=== PATIENT | female | born 1950 | race Caucasian/White ===

== ENCOUNTER 2020-04-27 22:03 | Inpatient (IN) | payer MEDICARE ==
[2020-04-27] MEDS ORDERED: Lorazepam 1 MG TAB PO PRN (22:32)
[2020-04-28 05:39] LABS: #Basophils 0.1 thou/uL (0.0-0.2); #Eosinphils 0.4 thou/uL (0.0-0.7); #Monocytes 0.7 thou/uL (0.11-0.59); #Neutrophils 3.2 thou/uL (1.40-6.50); %Basophils 1.6 % (0.0-1.0); %Lymphocytes 31.4 % (21.0-51.0); %Monocytes 11.1 % (0.0-10.0); %Neutrophils 49.9 % (42.0-75.0); Hemoglobin 11.5 g/dL (12.0-16.0); Mean Corpuscular Hemoglobin 28.4 pg (27.0-31.0); Mean Corpuscular Volume 86.1 fL (78.0-98.0); Platelet Count 181 thou/uL (130-400); Red Blood Cell (RBC) Count 4.05 mill/uL (4.20-5.40); White Blood Cell (WBC) Count 6.4 thou/uL (4.8-10.8)
[2020-04-28 05:44] LABS: ALT (SGPT) 11 U/L (8-55); AST (SGOT) 24 U/L (5-34); Albumin 3.3 g/dL (3.4-4.8); Alkaline Phosphatase 68 U/L (40-110); Anion Gap 12 mmol/L (10-20); BUN (Urea Nitrogen) 11 mg/dL (9.8-20.1); Bilirubin, Total 0.8 mg/dL (0.2-1.2); Calc. Creatinine Clearance 98 mL/min (70-130); Calcium 8.5 mg/dL (7.8-10.44); Carbon Dioxide 27 mmol/L (23-31); Chloride 104 mmol/L (98-107); Globulin 2.7 g/dL (2.4-3.5); Glucose 99 mg/dL (80-115); Potassium 3.3 mmol/L (3.5-5.1); Sodium 140 mmol/L (136-145)
[2020-04-28] MEDS ORDERED: Losartan Potassium 50 MG TAB PO SCH (09:00)
[2020-04-28] MEDS: Escitalopram Oxalate 20 mg Tablet PO SCH (09:43)
[2020-04-28] MEDS: BIOTIN 5 MG CAPSULE PO SCH (09:44)
[2020-04-28] MEDS: Hydrochlorothiazide 25 MG TAB PO SCH (09:44)
[2020-04-28] MEDS: Loratadine 10 MG TAB PO SCH (09:44)
[2020-04-28] MEDS: Stress 600 With Zinc 1 TAB PO SCH (09:44)
[2020-04-28] MEDS ORDERED: Lorazepam 0.5 MG TAB PO PRN (12:30)
[2020-04-28] MEDS ORDERED: Potassium Chloride 20 MEQ TAB PO SCH (17:45)
[2020-04-28] MEDS: Acetaminophen 500 MG TAB PO PRN (18:33)
[2020-04-28] MEDS: Atorvastatin Calcium 10 MG TAB PO SCH (20:18)
[2020-04-28] MEDS: Melatonin 3 MG TAB PO SCH (20:18)
[2020-04-28] MEDS: Famotidine 20 MG TAB PO SCH (20:18)
--- NOTE | 2020-04-28 21:17 | HP ---
PRINCIPAL DIAGNOSIS: Right femur fracture, status post surgical fixation for therapy. HISTORY OF PRESENT ILLNESS: This is a pleasant 69-year-old female, who apparently fell at home. She noticed immediate pain to her right hip. Workup showed an intertrochanteric fracture and she underwent surgical fixation. She apparently has been gradually declining over the last year and she has been evaluated by Dr. Guo, the neurologist, with no definitive diagnosis. She had a second opinion by another neurologist while in the hospital and they were also not able to give her a diagnosis. She is supposed to follow up as outpatient. She has done well otherwise and was felt to be a candidate for inpatient rehabilitation and transferred here. The patient is resting in bed and other than heartburn, denies any complaints. PAST MEDICAL HISTORY: 1. Hypertension. 2. Mild dysphagia. 3. Mild cognitive dysfunction and gastroesophageal reflux disease. PAST SURGICAL HISTORY: 1. Hysterectomy. 2. Breast lumpectomy. 3. History of back surgery. PSYCHOSOCIAL HISTORY: She lives at home with her . Moves around with a cane. Social alcohol intake. Denies any tobacco or recreational drug abuse. MEDICATIONS: She was transferred here on 1. Tylenol 1000 mg daily as needed. 2. Lipitor 10 mg at bedtime. 3. Lexapro 20 mg daily. 4. Pepcid 20 mg b.i.d. 5. HCTZ 25 daily. 6. Claritin 10 mg daily. 7. Ativan 1 mg daily for anxiety. 8. Cozaar 100 mg daily. 9. Toprol-XL 150 mg at bedtime. 10. Stress tablet with zinc one tablet daily. ALLERGIES: NO KNOWN DRUG ALLERGIES. FAMILY HISTORY: Noncontributory to current admission. REVIEW OF SYSTEMS: CARDIOVASCULAR SYSTEM: Denies any chest pain, shortness of breath, palpitations, PND, orthopnea, pedal edema. RESPIRATORY SYSTEM: Denies any chronic cough, expectoration, or pleuritic-type chest pain. GASTROINTESTINAL SYSTEM: Denies any nausea, vomiting, diarrhea, constipation, hematemesis, melena, hematochezia. GENITOURINARY SYSTEM: Denies any frequency, urgency, dysuria, hematuria. EXTREMITIES: Does complain of right hip and leg pain. CENTRAL NERVOUS SYSTEM: No focal numbness, weakness, or fainting spells. HEENT: Denies any changes with speech, vision, hearing, or swallowing. SKIN: Denies any rash. PHYSICAL EXAMINATION: GENERAL: Pleasant 69-year-old female, who is up in bed and denies any concerns other than heartburn. She is alert, awake, and oriented x3. VITAL SIGNS: She is afebrile. Heart rate 93, respirations 18, oxygen saturation 94% on room air, blood pressure 167/77. HEENT: Normocephalic, atraumatic. Pupils equally reactive to light and accommodation. Extraocular muscles intact. No JVD, thyromegaly, cervical adenopathy, or throat exudates. No carotid bruits. CARDIOVASCULAR SYSTEM: S1-S2 plus. Rate and rhythm regular. RESPIRATORY SYSTEM: Normal vesicular breath sounds heard in all lung blanco. ABDOMEN: Soft, nontender. Bowel sounds heard in all quadrants. EXTREMITIES: Without cyanosis, clubbing. Right hip incision with dressing. CENTRAL NERVOUS SYSTEM: AAO x3. Cranial nerves 2 through 12 intact. Generalized weakness, otherwise nonfocal. LABORATORY DATA: Laboratory values done this morning, shows a white count of 6.4, H and H are 11.5 and 34.5. Sodium 140, potassium is slightly low at 3.3, BUN and creatinine are 11 and 0.68. IMPRESSION: 1. Right hip fracture, status post surgical fixation. 2. Hypertension. 3. Dyslipidemia. 4. Depression and anxiety. 5. Hypokalemia. 6. Gradual decline neurologically with undetermined diagnosis. 7. Gastroesophageal reflux disease. PLAN: 1. Continue current discharge medications from previous hospital. 2. Add Pepcid 20 mg b.i.d. 3. Apparently, her blood pressures have been low in the morning, so we will cut down on losartan 50 mg in the morning and then metoprolol to 50 mg at bedtime, although here her blood pressures have been running high. 4. Heart-healthy diet. 5. Orthopedic precautions. 6. DVT prophylaxis with PlexiPulses. 7. Decubitus precaution. 8. Stress ulcer prophylaxis. 9. Replace potassium. 10. Recheck BMP. 11. PT, OT eval and treat. 12. Discussed with the patient and nursing in detail. All questions answered. Job ID: [id number]
[2020-04-29 05:32] LABS: Anion Gap 14 mmol/L (10-20); BUN (Urea Nitrogen) 11 mg/dL (9.8-20.1); Calc. Creatinine Clearance 97 mL/min (70-130); Calcium 8.6 mg/dL (7.8-10.44); Carbon Dioxide 24 mmol/L (23-31); Chloride 102 mmol/L (98-107); Glucose 103 mg/dL (80-115); Potassium 3.4 mmol/L (3.5-5.1); Sodium 137 mmol/L (136-145)
[2020-04-29] MEDS: Acetaminophen 500 MG TAB PO PRN ×2 (08:36→14:18)
[2020-04-29] MEDS: Hydrochlorothiazide 25 MG TAB PO SCH (08:37)
[2020-04-29] MEDS: Famotidine 20 MG TAB PO SCH ×2 (08:37→20:16)
[2020-04-29] MEDS: Losartan Potassium 50 MG TAB PO SCH (08:37)
[2020-04-29] MEDS: Loratadine 10 MG TAB PO SCH (08:37)
[2020-04-29] MEDS: Escitalopram Oxalate 20 mg Tablet PO SCH (08:37)
[2020-04-29] MEDS: Stress 600 With Zinc 1 TAB PO SCH (08:37)
[2020-04-29] MEDS: BIOTIN 5 MG CAPSULE PO SCH (08:38)
--- NOTE | 2020-04-29 09:06 | PRG ---
DATE OF SERVICE: 04/29/2020 SUBJECTIVE: Ms. Stover is up in bed and states that the famotidine is helping. She is still having some pain, but the pain medicines are helping. No family at bedside. Discussed with nursing. No other concerns or questions. OBJECTIVE: VITAL SIGNS: She is afebrile, heart rate 90, respirations 20, oxygen saturation 93% on room air, and blood pressure is 130/75. CARDIOVASCULAR SYSTEM: S1 and S2 plus. RESPIRATORY SYSTEM: Normal vesicular breath sounds. ABDOMEN: Soft, nontender. Bowel sounds heard in all quadrants. EXTREMITIES: Without cyanosis or clubbing. Hip incision is healthy. CENTRAL NERVOUS SYSTEM: Generalized weakness, otherwise nonfocal. IMPRESSION: 1. Hypertension. 2. Dysphagia. 3. Dyslipidemia. 4. Gastroesophageal reflux disease. 5. Anxiety and depression. 6. Right femur fracture, status post surgical fixation and possible degenerative neuromuscular condition still undetermined. PLAN: 1. Continue current medications. 2. Heart-healthy diet. 3. Orthopedic precautions. 4. Pain management. 5. DVT prophylaxis with PlexiPulses. 6. Decubitus precaution. 7. Stress ulcer prophylaxis. 8. Physical therapy. 9. Routine laboratory values. 10. Monitor neuro status. 11. Discussed with the patient in detail. All questions answered. Job ID: [id number]
[2020-04-29] MEDS: Melatonin 3 MG TAB PO SCH (20:16)
[2020-04-29] MEDS: Atorvastatin Calcium 10 MG TAB PO SCH (20:16)
[2020-04-30] MEDS: Acetaminophen 500 MG TAB PO PRN ×2 (02:44→20:41)
[2020-04-30] MEDS: Hydrochlorothiazide 25 MG TAB PO SCH (08:58)
[2020-04-30] MEDS: Stress 600 With Zinc 1 TAB PO SCH (08:58)
[2020-04-30] MEDS: Famotidine 20 MG TAB PO SCH ×2 (08:59→20:41)
[2020-04-30] MEDS: Losartan Potassium 50 MG TAB PO SCH (08:59)
[2020-04-30] MEDS: Loratadine 10 MG TAB PO SCH (08:59)
[2020-04-30] MEDS: BIOTIN 5 MG CAPSULE PO SCH (08:59)
[2020-04-30] MEDS: Escitalopram Oxalate 20 mg Tablet PO SCH (08:59)
[2020-04-30] MEDS: Melatonin 3 MG TAB PO SCH (20:41)
[2020-04-30] MEDS: Atorvastatin Calcium 10 MG TAB PO SCH (20:41)
[2020-04-30 22:32] VITALS: BMI 29.7
[2020-05-01] MEDS: Stress 600 With Zinc 1 TAB PO SCH (09:35)
[2020-05-01] MEDS: Famotidine 20 MG TAB PO SCH ×2 (09:35→20:36)
[2020-05-01] MEDS: Escitalopram Oxalate 20 mg Tablet PO SCH (09:35)
[2020-05-01] MEDS: Hydrochlorothiazide 25 MG TAB PO SCH (09:35)
[2020-05-01] MEDS: BIOTIN 5 MG CAPSULE PO SCH (09:36)
[2020-05-01] MEDS: Losartan Potassium 50 MG TAB PO SCH (09:36)
[2020-05-01] MEDS: Loratadine 10 MG TAB PO SCH (09:36)
--- NOTE | 2020-05-01 13:53 | PRG ---
DATE OF SERVICE: 04/30/2020 SUBJECTIVE: Ms. Stover is up in bed. She denies any complaints. Her acid reflux is much improved. Her pain is well controlled. No family at bedside. OBJECTIVE: VITAL SIGNS: She is afebrile. Heart rate is 96, respirations 19, oxygen saturation 94% on room air, blood pressure 146/68. CARDIOVASCULAR SYSTEM: S1-S2 plus. RESPIRATORY SYSTEM: Normal vesicular breath sounds. ABDOMEN: Soft, nontender. Bowel sounds heard in all quadrants. EXTREMITIES: Without cyanosis or clubbing. Right hip incision is healthy. CENTRAL NERVOUS SYSTEM: Improving deconditioning. IMPRESSION: 1. Hypertension. 2. Gastroesophageal reflux disease. 3. Dyslipidemia. 4. Allergic rhinitis. 5. Right hip fracture, status post surgical fixation. 6. Possible degenerative neuromuscular condition. PLAN: 1. Continue current medications. 2. Heart healthy diet. 3. Orthopedic precautions. 4. DVT prophylaxis. 5. Decubitus precautions. 6. Stress ulcer prophylaxis. 7. Physical therapy. 8. Routine laboratory values. Job ID: [id number]
[2020-05-01] MEDS ORDERED: Potassium Chloride 20 MEQ TAB PO SCH (14:00)
--- NOTE | 2020-05-01 14:44 | PRG ---
DATE OF SERVICE: 05/01/2020 SUBJECTIVE: Ms. Stover is up in bed. Her spouse is in the room. She apparently ate almost three-quarters of burger, No concerns or questions. I did advise the spouse to call into the weekly case conference, so they will have an idea on her progress. OBJECTIVE: VITAL SIGNS: She is afebrile. Heart rate is 77, respirations 18, oxygen saturation 94% on room air, blood pressure 138/61. CARDIOVASCULAR SYSTEM: S1-S2 plus. RESPIRATORY SYSTEM: Normal vesicular breath sounds. ABDOMEN: Soft, nontender. Bowel sounds heard in all quadrants. EXTREMITIES: Without cyanosis or clubbing. Right hip incision is healthy. IMPRESSION: 1. Right hip fracture, status post surgical fixation. 2. Hypertension. 3. Dyslipidemia. 4. Persistent hypokalemia. 5. Possible degenerative neurological condition and gastroesophageal reflux disease. PLAN: 1. Continue current medications with hypertensive supplementation. 2. Recheck laboratory values in the morning. 3. Physical therapy. 4. Orthopedic precautions. 5. Heart healthy diet. 6. DVT prophylaxis. 7. Decubitus precautions. 8. Discussed with the patient and spouse in detail. All questions answered. Job ID: [id number]
[2020-05-01] MEDS: Melatonin 3 MG TAB PO SCH (20:36)
[2020-05-01] MEDS: Atorvastatin Calcium 10 MG TAB PO SCH (20:36)
[2020-05-01] MEDS: Acetaminophen 500 MG TAB PO PRN (23:17)
[2020-05-02 05:26] LABS: #Basophils 0.1 thou/uL (0.0-0.2); #Eosinphils 0.3 thou/uL (0.0-0.7); #Lymphocytes 2.8 thou/uL (1.20-3.40); #Monocytes 0.9 thou/uL (0.11-0.59); #Neutrophils 5.1 thou/uL (1.40-6.50); %Basophils 1.6 % (0.0-1.0); %Eosinophils 3.2 % (0.0-10.0); %Lymphocytes 30.2 % (21.0-51.0); %Monocytes 9.9 % (0.0-10.0); %Neutrophils 55.2 % (42.0-75.0); Hemoglobin 11.7 g/dL (12.0-16.0); Mean Corpuscular HGB CONC 32.8 g/dL (32.0-36.0); Mean Corpuscular Hemoglobin 28.1 pg (27.0-31.0); Mean Corpuscular Volume 85.8 fL (78.0-98.0); Platelet Count 256 thou/uL (130-400); RBC Distribution Width 12.1 % (11.5-14.5); Red Blood Cell (RBC) Count 4.15 mill/uL (4.20-5.40); White Blood Cell (WBC) Count 9.3 thou/uL (4.8-10.8)
[2020-05-02 05:38] LABS: Anion Gap 15 mmol/L (10-20); BUN (Urea Nitrogen) 13 mg/dL (9.8-20.1); Calc. Creatinine Clearance 91 mL/min (70-130); Calcium 8.7 mg/dL (7.8-10.44); Carbon Dioxide 24 mmol/L (23-31); Chloride 102 mmol/L (98-107); Glucose 101 mg/dL (80-115); Potassium 3.6 mmol/L (3.5-5.1); Sodium 137 mmol/L (136-145)
[2020-05-02] MEDS: Potassium Chloride 20 MEQ TAB PO SCH (08:27)
[2020-05-02] MEDS: Famotidine 20 MG TAB PO SCH ×2 (08:28→20:29)
[2020-05-02] MEDS: Hydrochlorothiazide 25 MG TAB PO SCH (08:28)
[2020-05-02] MEDS: Escitalopram Oxalate 20 mg Tablet PO SCH (08:28)
[2020-05-02] MEDS: Loratadine 10 MG TAB PO SCH (08:29)
[2020-05-02] MEDS: BIOTIN 5 MG CAPSULE PO SCH (08:29)
[2020-05-02] MEDS: Losartan Potassium 50 MG TAB PO SCH (08:29)
[2020-05-02] MEDS: Stress 600 With Zinc 1 TAB PO SCH (08:29)
--- NOTE | 2020-05-02 13:41 | PRG ---
DATE OF SERVICE: SUBJECTIVE: Ms. Stover is doing well. She does complain of some muscle spasm in her right thigh. No other concerns or questions. Plan is to discontinue her Stone catheter today and start her on tizanidine 4 mg at bedtime to see if it helps. OBJECTIVE: VITAL SIGNS: She is afebrile. Heart rate 82, respirations 18, oxygen saturation 92% on room air, blood pressure 126/62. CARDIOVASCULAR SYSTEM: S1 and S2 plus. RESPIRATORY SYSTEM: Normal vesicular breath sounds. ABDOMEN: Soft and nontender. Bowel sounds heard in all quadrants. EXTREMITIES: Without cyanosis or clubbing. Hip incision is healthy. CENTRAL NERVOUS SYSTEM: Generalized weakness, otherwise nonfocal. IMPRESSION: 1. Right hip fracture, status post surgical fixation. 2. Hypertension. 3. Dyslipidemia. 4. Gastroesophageal reflux disease. 5. Resolved hypokalemia. PLAN: 1. Discontinue Stone catheter. 2. Tizanidine 4 mg at bedtime p.r.n. 3. Physical therapy. 4. Orthopedic precautions. 5. Incision care. 6. Nutritional support. 7. Routine laboratory values. Job ID: [id number]
[2020-05-02] MEDS: Atorvastatin Calcium 10 MG TAB PO SCH (20:29)
[2020-05-02] MEDS: tiZANidine HCl 4 MG TAB PO PRN (20:29)
[2020-05-02] MEDS: Melatonin 3 MG TAB PO SCH (20:29)
[2020-05-03] MEDS: Potassium Chloride 20 MEQ TAB PO SCH (08:27)
[2020-05-03] MEDS: Escitalopram Oxalate 20 mg Tablet PO SCH (08:27)
[2020-05-03] MEDS: Famotidine 20 MG TAB PO SCH ×2 (08:27→21:05)
[2020-05-03] MEDS: Losartan Potassium 50 MG TAB PO SCH (08:28)
[2020-05-03] MEDS: Hydrochlorothiazide 25 MG TAB PO SCH (08:28)
[2020-05-03] MEDS: Loratadine 10 MG TAB PO SCH (08:28)
[2020-05-03] MEDS: Stress 600 With Zinc 1 TAB PO SCH (08:33)
[2020-05-03] MEDS: BIOTIN 5 MG CAPSULE PO SCH (08:33)
--- NOTE | 2020-05-03 13:44 | PRG ---
DATE OF SERVICE: 05/03/2020 SUBJECTIVE: Ms. Stover is up in bed. She just finished her lunch. She apparently slept great last night. She said that she did not do as well with therapy today and wonders if it might be the tizanidine I have not heard of that issue as the medicine last only 6 hours in her system, but we will see how she does tomorrow and then reassess. She is doing well otherwise and no concerns or questions. Her morning medications were held. OBJECTIVE: VITAL SIGNS: She is afebrile, heart rate 82, respirations 18, oxygen saturation 93% on room air, and blood pressure 107/57. CARDIOVASCULAR SYSTEM: S1 and S2 plus. RESPIRATORY SYSTEM: Normal vesicular breath sounds. ABDOMEN: Soft, nontender. Bowel sounds heard in all quadrants. EXTREMITIES: Without cyanosis or clubbing. Hip incision is healthy. CENTRAL NERVOUS SYSTEM: Improving deconditioning. IMPRESSION: 1. Hypertension, well controlled. 2. Right hip fracture, status post surgical fixation. 3. Dyslipidemia. 4. Gastroesophageal reflux disease. 5. Muscle spasticity, improving. PLAN: 1. Continue current medications. 2. Tizanidine p.r.n. 3. Orthopedic precautions. 4. DVT prophylaxis. The patient is mobile enough that she does not need any. 5. Decubitus precautions. 6. Stress ulcer prophylaxis. 7. Monitor system. The patient has been able to void on her own. Job ID: [id number]
[2020-05-03] MEDS: tiZANidine HCl 4 MG TAB PO PRN (17:26)
[2020-05-03] MEDS: Atorvastatin Calcium 10 MG TAB PO SCH (21:05)
[2020-05-03] MEDS: Melatonin 3 MG TAB PO SCH (21:05)
[2020-05-04] MEDS: Stress 600 With Zinc 1 TAB PO SCH (08:36)
[2020-05-04] MEDS: Potassium Chloride 20 MEQ TAB PO SCH (08:36)
[2020-05-04] MEDS: Loratadine 10 MG TAB PO SCH (08:37)
[2020-05-04] MEDS: Hydrochlorothiazide 25 MG TAB PO SCH (08:37)
[2020-05-04] MEDS: Famotidine 20 MG TAB PO SCH ×2 (08:37→20:26)
[2020-05-04] MEDS: Losartan Potassium 50 MG TAB PO SCH (08:37)
[2020-05-04] MEDS: Escitalopram Oxalate 20 mg Tablet PO SCH (08:37)
[2020-05-04] MEDS: Acetaminophen 500 MG TAB PO PRN ×2 (10:29→20:25)
--- NOTE | 2020-05-04 12:56 | PRG ---
DATE OF SERVICE: 05/04/2020 SUBJECTIVE: Ms. Stover is resting in bed. She denies any concerns other than she did not do as well with therapy today as she did yesterday. She is sleeping great. Her muscle relaxant is helping. No other concerns or questions. OBJECTIVE: VITAL SIGNS: She is afebrile, heart rate 85, respirations 17, oxygen saturation 93% on room air, and blood pressure 143/68. CARDIOVASCULAR SYSTEM: S1 and S2 plus. RESPIRATORY SYSTEM: Normal vesicular breath sounds. ABDOMEN: Soft, nontender. Bowel sounds heard in all quadrants. EXTREMITIES: Without cyanosis or clubbing. IMPRESSION: 1. Right hip fracture, status post surgical fixation. 2. Hypertension, well controlled. 3. Dyslipidemia. 4. Gastroesophageal reflux disease. 5. Much improved muscle spasticity. PLAN: 1. Continue current medications. 2. Heart healthy diet. 3. Monitor blood pressure and adjust medications as needed. 4. Orthopedic precautions and incision care. 5. Physical therapy. 6. Routine laboratory values. Job ID: [id number]
[2020-05-04] MEDS: Melatonin 3 MG TAB PO SCH (20:27)
[2020-05-04] MEDS: Atorvastatin Calcium 10 MG TAB PO SCH (20:27)
[2020-05-05] MEDS: Hydrochlorothiazide 25 MG TAB PO SCH (08:21)
[2020-05-05] MEDS: Stress 600 With Zinc 1 TAB PO SCH (08:21)
[2020-05-05] MEDS: Famotidine 20 MG TAB PO SCH ×2 (08:21→20:42)
[2020-05-05] MEDS: Potassium Chloride 20 MEQ TAB PO SCH (08:21)
[2020-05-05] MEDS: Losartan Potassium 50 MG TAB PO SCH (08:21)
[2020-05-05] MEDS: Escitalopram Oxalate 20 mg Tablet PO SCH (08:21)
[2020-05-05] MEDS: Loratadine 10 MG TAB PO SCH (08:22)
[2020-05-05] MEDS: Acetaminophen 500 MG TAB PO PRN (10:01)
--- NOTE | 2020-05-05 14:00 | PRG ---
DATE OF SERVICE: 05/05/2020 SUBJECTIVE: Ms. Stover is doing well. She has a rash in her sacral area, most likely from lying down and sweating. It crosses the midline and does not look like shingles. I asked nursing to apply barrier cream. Her insurance last date is May 08 and the patient wants to go home on Saturday. She does not have a preference on home health and she wants me to pick one. She states that she already has a walker, wheelchair, and a bedside commode at home. OBJECTIVE: VITAL SIGNS: She is afebrile, heart rate 80, respirations 18, oxygen saturation 98% on room air, blood pressure 135/61. CARDIOVASCULAR SYSTEM: S1 and S2 plus. RESPIRATORY SYSTEM: Normal vesicular breath sounds. ABDOMEN: Soft, nontender. Bowel sounds heard in all quadrants. EXTREMITIES: Without cyanosis or clubbing. BACK: Shows mild maculopapular rash bilaterally with no signs of infection. IMPRESSION: 1. Right hip fracture, status post surgical fixation. 2. Hypertension. 3. Dyslipidemia. 4. Gastroesophageal reflux disease. 5. Possible degenerative neuromuscular condition as yet undiagnosed. PLAN: 1. Continue current medications. 2. Heart healthy diet. 3. Discharge planning. 4. Arrange home health. 5. Outpatient followup with Neurology. 6. Discussed with the patient in detail. 7. Barrier cream for the rash. Job ID: [id number]
[2020-05-05] MEDS: Melatonin 3 MG TAB PO SCH (20:41)
[2020-05-05] MEDS: Atorvastatin Calcium 10 MG TAB PO SCH (20:42)
[2020-05-06] MEDS: Famotidine 20 MG TAB PO SCH ×2 (08:47→21:34)
[2020-05-06] MEDS: Stress 600 With Zinc 1 TAB PO SCH (08:47)
[2020-05-06] MEDS: Escitalopram Oxalate 20 mg Tablet PO SCH (08:47)
[2020-05-06] MEDS: Hydrochlorothiazide 25 MG TAB PO SCH (08:47)
[2020-05-06] MEDS: Loratadine 10 MG TAB PO SCH (08:47)
[2020-05-06] MEDS: Potassium Chloride 20 MEQ TAB PO SCH (08:47)
[2020-05-06] MEDS: Losartan Potassium 50 MG TAB PO SCH (12:04)
--- NOTE | 2020-05-06 18:57 | PRG ---
DATE OF SERVICE: 05/06/2020 SUBJECTIVE: Ms. Stover is up in bed and denies any concerns. She states that she is ready to go home. She is having trouble finding a home health agency, so Case Management is working on it. She has been cleared to go home either tomorrow or Saturday based upon all the discharge arrangements. The patient states she has all her DME at home from her mom and she does not need anything. Therapy is going to double-check. OBJECTIVE: VITAL SIGNS: She is afebrile, heart rate 84, respirations 20, oxygen saturation 96% on room air, and blood pressure 118/60. CARDIOVASCULAR SYSTEM: S1 and S2 plus. RESPIRATORY SYSTEM: Normal vesicular breath sounds. ABDOMEN: Soft and nontender. Bowel sounds heard in all quadrants. EXTREMITIES: Without cyanosis or clubbing. Right hip incision with dressing. CENTRAL NERVOUS SYSTEM: Grossly nonfocal. IMPRESSION: 1. Right hip fracture status post surgical fixation. 2. Hypertension. 3. Dyslipidemia. 4. Gastroesophageal reflux disease. 5. Possible neuromuscular condition, as yet undiagnosed. She apparently has been noticing some generalized weakness. She has seen Dr. Guo who was unable to find anything, and she also saw Dr. Alfaro in the hospital recently and they were also not able to come to a diagnosis. She was advised to follow up with one of the neurologists as outpatient for continued workup. PLAN: 1. Continue current medications. 2. Physical therapy. 3. Discharge planning by arranging home health and making sure she has all DME at home. 4. Nutritional support. 5. Discussed with the patient in detail and all questions answered. She states that her sacral rash is better. I informed her that Dr. Rincon is on-call this weekend. Job ID: [id number]
[2020-05-06] MEDS: Atorvastatin Calcium 10 MG TAB PO SCH (21:34)
[2020-05-06] MEDS: Melatonin 3 MG TAB PO SCH (21:34)
[2020-05-06] MEDS: Acetaminophen 500 MG TAB PO PRN (21:55)
[2020-05-07 07:56] VITALS: BP 122/55; TEMP 98.1
[2020-05-07] MEDS: Escitalopram Oxalate 20 mg Tablet PO SCH (08:31)
[2020-05-07] MEDS: Potassium Chloride 20 MEQ TAB PO SCH (08:31)
[2020-05-07] MEDS: Hydrochlorothiazide 25 MG TAB PO SCH (08:32)
[2020-05-07] MEDS: Famotidine 20 MG TAB PO SCH (08:32)
[2020-05-07] MEDS: Losartan Potassium 50 MG TAB PO SCH (08:32)
[2020-05-07] MEDS: Loratadine 10 MG TAB PO SCH (08:32)
[2020-05-07] MEDS: Stress 600 With Zinc 1 TAB PO SCH (08:33)
== END 2020-05-07 16:45 | disposition home health service (06) | DRG 561 ==
LOC: NAV ACUTE 22:03
PROVIDERS: ADMIT Internal Medicine; ATTEND Internal Medicine
DX: S72.001D Fracture of unspecified part of neck of right femur, subsequent encounter for closed fracture with routine healing (principal); E87.6 Hypokalemia; I10 Essential (primary) hypertension; K21.9 Gastro-esophageal reflux disease without esophagitis; E78.5 Hyperlipidemia, unspecified; F32.9 Major depressive disorder, single episode, unspecified; F41.9 Anxiety disorder, unspecified; R13.10 Dysphagia, unspecified; J30.9 Allergic rhinitis, unspecified; M62.838 Other muscle spasm; R21 Rash and other nonspecific skin eruption; Z90.710 Acquired absence of both cervix and uterus; Z79.899 Other long term (current) drug therapy
CPT/HCPCS: 80048; 80053; 85025

== ENCOUNTER 2020-09-07 14:34 | Inpatient (IN) | payer OTHER, MEDICARE ==
[2020-09-07 16:16] VITALS: BMI 30.9
[2020-09-07 17:54] LABS: Anion Gap 16 mmol/L (10-20); BUN (Urea Nitrogen) 15 mg/dL (9.8-20.1); Calc. Creatinine Clearance 89 mL/min (70-130); Carbon Dioxide 25 mmol/L (23-31); Chloride 99 mmol/L (98-107); Glucose 96 mg/dL (80-115); Potassium 3.7 mmol/L (3.5-5.1); Sodium 136 mmol/L (136-145)
[2020-09-07] MEDS ORDERED: Lorazepam 0.5 MG TAB PO PRN (18:09)
[2020-09-07] MEDS: Acetaminophen 325 MG TAB PO SCH ×2 (18:45→18:49)
[2020-09-07] MEDS: Acetaminophen/Codeine 30-300mg Tablet PO PRN (18:50)
[2020-09-07] MEDS: Atorvastatin Calcium 10 MG TAB PO SCH (20:35)
[2020-09-07] MEDS: Melatonin 3 MG TAB PO SCH (20:35)
[2020-09-08] MEDS: Acetaminophen 325 MG TAB PO SCH ×4 (00:50→17:44)
[2020-09-08] MEDS: Acetaminophen/Codeine 30-300mg Tablet PO PRN ×2 (05:15→17:45)
[2020-09-08 05:24] LABS: #Basophils 0.1 thou/uL (0.0-0.2); #Eosinphils 0.2 thou/uL (0.0-0.7); #Monocytes 0.6 thou/uL (0.11-0.59); #Neutrophils 3.4 thou/uL (1.40-6.50); %Lymphocytes 32.4 % (21.0-51.0); %Monocytes 8.8 % (0.0-10.0); %Neutrophils 54.8 % (42.0-75.0); Hemoglobin 10.9 g/dL (12.0-16.0); Mean Corpuscular HGB CONC 31.4 g/dL (32.0-36.0); Mean Corpuscular Hemoglobin 27.6 pg (27.0-31.0); Mean Corpuscular Volume 87.9 fL (78.0-98.0); Mean Platelet Volume 6.2 fL (7.4-10.4); Platelet Count 254 thou/uL (130-400); RBC Distribution Width 12.8 % (11.5-14.5); Red Blood Cell (RBC) Count 3.94 mill/uL (4.20-5.40); White Blood Cell (WBC) Count 6.3 thou/uL (4.8-10.8)
[2020-09-08 05:31] LABS: Anion Gap 13 mmol/L (10-20); BUN (Urea Nitrogen) 14 mg/dL (9.8-20.1); Calc. Creatinine Clearance 88 mL/min (70-130); Calcium 8.9 mg/dL (7.8-10.44); Carbon Dioxide 28 mmol/L (23-31); Chloride 101 mmol/L (98-107); Glucose 104 mg/dL (80-115); Potassium 3.9 mmol/L (3.5-5.1); Sodium 138 mmol/L (136-145)
[2020-09-08] MEDS: Losartan Potassium 50 MG TAB PO SCH (09:37)
[2020-09-08] MEDS: Cholecalciferol 1,000 UNITS (25 MCG) TAB PO SCH (09:38)
[2020-09-08] MEDS: Hydrochlorothiazide 25 MG TAB PO SCH (09:38)
[2020-09-08] MEDS: Escitalopram Oxalate 20 mg Tablet PO SCH (09:38)
[2020-09-08] MEDS: Loratadine 10 MG TAB PO SCH (09:38)
[2020-09-08] MEDS: Stress 600 With Zinc 1 TAB PO SCH (09:38)
[2020-09-08] MEDS: BIOTIN 5 MG PO SCH (09:39)
[2020-09-08] MEDS: Melatonin 3 MG TAB PO SCH (20:16)
[2020-09-08] MEDS: Atorvastatin Calcium 10 MG TAB PO SCH (20:17)
[2020-09-09] MEDS: Acetaminophen/Codeine 30-300mg Tablet PO PRN ×4 (00:02→18:14)
[2020-09-09] MEDS: Acetaminophen 325 MG TAB PO SCH ×5 (00:03→23:38)
[2020-09-09] MEDS: Loratadine 10 MG TAB PO SCH (09:04)
[2020-09-09] MEDS: Stress 600 With Zinc 1 TAB PO SCH (09:04)
[2020-09-09] MEDS: Cholecalciferol 1,000 UNITS (25 MCG) TAB PO SCH (09:04)
[2020-09-09] MEDS: Losartan Potassium 50 MG TAB PO SCH (09:04)
[2020-09-09] MEDS: Hydrochlorothiazide 25 MG TAB PO SCH (09:04)
[2020-09-09] MEDS: Escitalopram Oxalate 20 mg Tablet PO SCH (09:04)
[2020-09-09] MEDS: BIOTIN 5 MG PO SCH (09:05)
[2020-09-09] MEDS ORDERED: traMADol HCl 50 MG TAB PO PRN (15:59)
[2020-09-09] MEDS: Melatonin 3 MG TAB PO SCH (20:47)
[2020-09-09] MEDS: Atorvastatin Calcium 10 MG TAB PO SCH (20:47)
[2020-09-09] MEDS: Senokot S 8.6-50 MG TAB PO PRN (20:48)
[2020-09-10] MEDS: Acetaminophen/Codeine 30-300mg Tablet PO PRN (00:10)
[2020-09-10] MEDS: Acetaminophen 325 MG TAB PO SCH ×4 (05:09→23:40)
[2020-09-10] MEDS: Loratadine 10 MG TAB PO SCH (08:22)
[2020-09-10] MEDS: Cholecalciferol 1,000 UNITS (25 MCG) TAB PO SCH (08:22)
[2020-09-10] MEDS: Escitalopram Oxalate 20 mg Tablet PO SCH (08:22)
[2020-09-10] MEDS: Hydrochlorothiazide 25 MG TAB PO SCH (08:22)
[2020-09-10] MEDS: Losartan Potassium 50 MG TAB PO SCH (08:23)
[2020-09-10] MEDS: Stress 600 With Zinc 1 TAB PO SCH (08:23)
[2020-09-10] MEDS: BIOTIN 5 MG PO SCH (08:23)
[2020-09-10] MEDS: Senokot S 8.6-50 MG TAB PO PRN (12:24)
[2020-09-10] MEDS: Melatonin 3 MG TAB PO SCH (20:09)
[2020-09-10] MEDS: Atorvastatin Calcium 10 MG TAB PO SCH (20:09)
[2020-09-11] MEDS: Acetaminophen/Codeine 30-300mg Tablet PO PRN ×2 (05:40→20:23)
[2020-09-11] MEDS: Acetaminophen 325 MG TAB PO SCH ×4 (05:50→23:41)
[2020-09-11] MEDS: Cholecalciferol 1,000 UNITS (25 MCG) TAB PO SCH (08:31)
[2020-09-11] MEDS: Escitalopram Oxalate 20 mg Tablet PO SCH (08:32)
[2020-09-11] MEDS: Losartan Potassium 50 MG TAB PO SCH (08:32)
[2020-09-11] MEDS: Stress 600 With Zinc 1 TAB PO SCH (08:32)
[2020-09-11] MEDS: Hydrochlorothiazide 25 MG TAB PO SCH (08:32)
[2020-09-11] MEDS: Loratadine 10 MG TAB PO SCH (08:32)
[2020-09-11] MEDS: BIOTIN 5 MG PO SCH (08:32)
[2020-09-11] MEDS: Senokot S 8.6-50 MG TAB PO PRN (08:33)
[2020-09-11] MEDS: Naproxen 500 MG TAB PO PRN (08:33)
[2020-09-11] MEDS: Melatonin 3 MG TAB PO SCH (20:23)
[2020-09-11] MEDS: Atorvastatin Calcium 10 MG TAB PO SCH (20:23)
[2020-09-12] MEDS: Acetaminophen 325 MG TAB PO SCH ×4 (06:12→23:09)
[2020-09-12] MEDS: Cholecalciferol 1,000 UNITS (25 MCG) TAB PO SCH (09:26)
[2020-09-12] MEDS: Naproxen 500 MG TAB PO PRN ×2 (09:27→20:50)
[2020-09-12] MEDS: Losartan Potassium 50 MG TAB PO SCH (09:28)
[2020-09-12] MEDS: Loratadine 10 MG TAB PO SCH (09:28)
[2020-09-12] MEDS: BIOTIN 5 MG PO SCH (09:29)
[2020-09-12] MEDS: Stress 600 With Zinc 1 TAB PO SCH (09:29)
[2020-09-12] MEDS: Escitalopram Oxalate 20 mg Tablet PO SCH (09:29)
[2020-09-12] MEDS: Hydrochlorothiazide 25 MG TAB PO SCH (09:29)
[2020-09-12] MEDS: Acetaminophen/Codeine 30-300mg Tablet PO PRN (11:54)
[2020-09-12] MEDS: Melatonin 3 MG TAB PO SCH (20:50)
[2020-09-12] MEDS: Atorvastatin Calcium 10 MG TAB PO SCH (20:53)
[2020-09-13] MEDS: Acetaminophen 325 MG TAB PO SCH ×3 (06:14→17:52)
[2020-09-13] MEDS: Naproxen 500 MG TAB PO PRN ×2 (08:04→21:02)
[2020-09-13] MEDS: Losartan Potassium 50 MG TAB PO SCH (08:05)
[2020-09-13] MEDS: BIOTIN 5 MG PO SCH (08:05)
[2020-09-13] MEDS: Cholecalciferol 1,000 UNITS (25 MCG) TAB PO SCH (08:05)
[2020-09-13] MEDS: Escitalopram Oxalate 20 mg Tablet PO SCH (08:05)
[2020-09-13] MEDS: Stress 600 With Zinc 1 TAB PO SCH (08:05)
[2020-09-13] MEDS: Loratadine 10 MG TAB PO SCH (08:05)
[2020-09-13] MEDS: Hydrochlorothiazide 25 MG TAB PO SCH (08:05)
[2020-09-13] MEDS: Acetaminophen/Codeine 30-300mg Tablet PO PRN (11:10)
[2020-09-13] MEDS: Melatonin 3 MG TAB PO SCH (21:02)
[2020-09-13] MEDS: Atorvastatin Calcium 10 MG TAB PO SCH (21:02)
[2020-09-14] MEDS: Acetaminophen 325 MG TAB PO SCH ×4 (00:51→17:52)
[2020-09-14] MEDS: Cholecalciferol 1,000 UNITS (25 MCG) TAB PO SCH (08:06)
[2020-09-14] MEDS: Hydrochlorothiazide 25 MG TAB PO SCH (08:07)
[2020-09-14] MEDS: Stress 600 With Zinc 1 TAB PO SCH (08:07)
[2020-09-14] MEDS: Loratadine 10 MG TAB PO SCH (08:07)
[2020-09-14] MEDS: Losartan Potassium 50 MG TAB PO SCH (08:07)
[2020-09-14] MEDS: Escitalopram Oxalate 20 mg Tablet PO SCH (08:07)
[2020-09-14] MEDS: Senokot S 8.6-50 MG TAB PO PRN (08:08)
[2020-09-14] MEDS: Naproxen 500 MG TAB PO PRN (08:08)
[2020-09-14] MEDS: Atorvastatin Calcium 10 MG TAB PO SCH (20:48)
[2020-09-14] MEDS: Melatonin 3 MG TAB PO SCH (20:48)
[2020-09-15] MEDS: Acetaminophen 325 MG TAB PO SCH ×5 (01:34→23:17)
[2020-09-15] MEDS: Escitalopram Oxalate 20 mg Tablet PO SCH (09:06)
[2020-09-15] MEDS: Cholecalciferol 1,000 UNITS (25 MCG) TAB PO SCH (09:06)
[2020-09-15] MEDS: Stress 600 With Zinc 1 TAB PO SCH (09:06)
[2020-09-15] MEDS: Loratadine 10 MG TAB PO SCH (09:06)
[2020-09-15] MEDS: Hydrochlorothiazide 25 MG TAB PO SCH (09:06)
[2020-09-15] MEDS: Senokot S 8.6-50 MG TAB PO PRN (09:07)
[2020-09-15] MEDS: Acetaminophen/Codeine 30-300mg Tablet PO PRN ×2 (09:07→20:59)
[2020-09-15] MEDS: Losartan Potassium 50 MG TAB PO SCH (09:07)
[2020-09-15] MEDS: Melatonin 3 MG TAB PO SCH (20:58)
[2020-09-15] MEDS: Atorvastatin Calcium 10 MG TAB PO SCH (20:58)
[2020-09-16] MEDS: Acetaminophen 325 MG TAB PO SCH ×2 (05:26→12:49)
[2020-09-16 08:32] VITALS: BP 170/74; TEMP 98.1
[2020-09-16] MEDS: Cholecalciferol 1,000 UNITS (25 MCG) TAB PO SCH (08:47)
[2020-09-16] MEDS: Losartan Potassium 50 MG TAB PO SCH (08:48)
[2020-09-16] MEDS: Stress 600 With Zinc 1 TAB PO SCH (08:48)
[2020-09-16] MEDS: Escitalopram Oxalate 20 mg Tablet PO SCH (08:48)
[2020-09-16] MEDS: Hydrochlorothiazide 25 MG TAB PO SCH (08:48)
[2020-09-16] MEDS: Loratadine 10 MG TAB PO SCH (08:48)
== END 2020-09-16 13:40 | disposition home or self-care (01) | DRG 560 ==
LOC: NAV ACUTE 15:54
PROVIDERS: ADMIT Internal Medicine; ATTEND Internal Medicine
DX: S72.142D Displaced intertrochanteric fracture of left femur, subsequent encounter for closed fracture with routine healing (principal); J98.11 Atelectasis; W01.10XD Fall on same level from slipping, tripping and stumbling with subsequent striking against unspecified object, subsequent encounter; I10 Essential (primary) hypertension; K21.9 Gastro-esophageal reflux disease without esophagitis; J30.9 Allergic rhinitis, unspecified; E78.5 Hyperlipidemia, unspecified; F41.9 Anxiety disorder, unspecified; F32.9 Major depressive disorder, single episode, unspecified; R53.81 Other malaise; G20 Parkinson's disease; Z90.710 Acquired absence of both cervix and uterus; Z98.890 Other specified postprocedural states; Z90.10 Acquired absence of unspecified breast and nipple; Z79.899 Other long term (current) drug therapy
CPT/HCPCS: 36415; 80048; 85025